=== PATIENT | male | born 1995 | race Caucasian/White ===

== ENCOUNTER 2017-01-27 11:29 | Emergency (ER) | payer OTHER ==
[~2017-01-27] VITALS: Ht 180.3 cm; Wt 88.9 kg
[2017-01-27 13:21] VITALS: BP 119/73
== END 2017-01-27 13:21 | disposition home or self-care (01) ==
LOC: ED 11:29
DX: S39.012A Strain of muscle, fascia and tendon of lower back, initial encounter (principal); M54.16 Radiculopathy, lumbar region; X58.XXXA Exposure to other specified factors, initial encounter; Y93.89 Activity, other specified; Y99.8 Other external cause status; Y92.89 Other specified places as the place of occurrence of the external cause
CPT/HCPCS: J3010